=== PATIENT | male | born 1970 | race African-American/Black ===

== ENCOUNTER 2016-12-13 18:57 | Emergency (ER) | payer OTHER ==
[~2016-12-13] VITALS: Ht 193 cm; Wt 145.1 kg
[~2016-12-13 18:57] MED LIST: ALLO100T PO; ALLO300T PO; COLC25PO PO; HYDR-2758 PO; HYDR-971 PO; Hydrocodone/Acetaminophen PO; LISI-338 PO; TOPI25TA52 PO; [UNRECOGNIZED DRUG - OTHER] PO
[2016-12-13 19:01] VITALS: BP 148/91
--- NOTE | 2016-12-13 19:49 | PHYS DOC ---
Past Medical History Past Medical History: Hypertension Additional Past Medical Histor: GOUT Past Surgical History: Knee Replacement Additional Past Surgical Histo: L ROTATOR CUFF REPAIR. Alcohol Use: Occasionally Drug Use: Marijuana Adult General Chief Complaint Chief Complaint: KNEE INJURY HPI HPI Patient is a 46 year old male who presents today complaining of moderate right anterior knee pain that began today after he fell on his knee. Patient states his right knee gave out. Patient states his pain is worse on ambulation. Review of Systems Review of Systems Constitutional: Denies fever or chills [] Musculoskeletal: moderate right anterior knee pain Integument: Denies rash or skin lesions [] Neurologic: Denies headache, focal weakness or sensory changes [] Current Medications Current Medications Current Medications Medications (Trade) Dose Ordered Sig/Joshua Start Time Stop Time Status Last Admin Dose Admin Acetaminophen/ Hydrocodone Bitart (Lortab 5/325) 2 tab 1X ONCE 12/13/16 20:00 12/13/16 20:01 Naproxen (Naprosyn) 500 mg 1X ONCE 12/13/16 20:00 12/13/16 20:01 Allergies Allergies Allergies Coded Allergies Type Severity Reaction Last Updated Verified No Known Drug Allergies 09/08/14 No Physical Exam Physical Exam Constitutional: Well developed, well nourished, no acute distress, non-toxic appearance. [] Skin: Warm, dry, no erythema, no rash. [] Back: No tenderness, no CVA tenderness. [] Extremities: Right knee with no obvious deformity. Mild soft tissue swelling noted on the right knee. Tenderness on palpation of the right anterior knee. Full passive range of motion to the right knee including negative Manoj sign and negative Hannah's sign negative anterior-posterior drawer sign. +2 right pedal pulse. Cap refill less than 2 seconds the right toes. Neurologic: Alert and oriented X 3, normal motor function, normal sensory function, no focal deficits noted. [] Psychologic: Affect normal, judgement normal, mood normal. [] Current Patient Data Vital Signs Vital Signs Date Time Temp Pulse Resp B/P (MAP) Pulse Ox O2 Delivery O2 Flow Rate FiO2 12/13/16 19:01 98.3 106 22 99 Room Air 98.3 EKG EKG [] Radiology/Procedures Radiology/Procedures [] Course & Med Decision Making Course & Med Decision Making Pertinent Labs and Imaging studies reviewed. (See chart for details) Patient is in the ED with right knee pain after falling on it today. X-ray of the right knee interpreted by Dr. Kilpatrick was negative for any acute findings. Immobilizer provided the right knee, neurovascular exam intact. Ice elevation encouraged. Crutches provided. Follow-up with his own orthopedic doctor at [facility] in the next 7 days. Dragon Disclaimer Dragon Disclaimer This electronic medical record was generated, in whole or in part, using a voice recognition dictation system. Departure Departure Impression: Primary Impression: Contusion of right knee Disposition: HOME, SELF-CARE Condition: STABLE Referrals: NICOLÁS HASTINGS (PCP) DANYEL BANUELOS MD followup in one week Patient Instructions: Contusion Additional Instructions: You were seen for right knee contusion after falling on it. Wear the immobilizer provided as needed. Ice elevate the extremity. Follow-up with your own orthopedic doctor at [facility] in the next 7 days or the doctor provided. Scripts Naproxen (NAPROXEN) 375 Mg Tablet 1 TAB PO BID, #20 TAB 0 Refills Prov: WAGNER BENOIT APRN 12/13/16 Hydrocodone/Apap 5-325 (NORCO 5-325 TABLET) 1 Each Tablet 1-2 TAB PO Q4-6HRS, #20 TAB Prov: WAGNER BENOIT APRN 12/13/16 Problem Qualifiers Primary Impression: Contusion of right knee Encounter type: initial encounter Qualified Codes: S80.01XA - Contusion of right knee, initial encounter WAGNER BENOIT APRN Dec 13, 2016 19:49
[2016-12-13] MEDS ORDERED: NAPR-695 PO (19:55)
[2016-12-13] MEDS ORDERED: HYDR-971 PO (19:55)
[2016-12-13] MEDS ORDERED: NAPROXEN 500 MG TABLET PO ONE (20:00)
[2016-12-13] MEDS ORDERED: HYDROcodone/APAP 5/325MG 1 TAB TABLET PO ONE (20:00)
--- NOTE | 2016-12-14 08:47 | RAD ---
Right knee with patella, 4 views, 12/13/2016: History: Fall, pain There is moderate marginal spurring at the knee joint and at the patellofemoral articulation. There is an oblique lucency projected over the proximal tibia, probably due to an overlying soft tissue shadow. No definite fracture or dislocation is seen. A small to moderate sized knee joint effusion is evident. There is moderate subcutaneous edema about the knee. IMPRESSION: 1. Moderate degenerative change. 2. Small to moderate sized knee joint effusion. 3. No definite fracture is identified. If knee pain persists, radiographic or MR follow-up is suggested.
== END 2016-12-13 20:13 | disposition home or self-care (01) ==
LOC: ER 18:57
DX: S80.01XA Contusion of right knee, initial encounter (principal); M10.9 Gout, unspecified; I10 Essential (primary) hypertension; W18.39XA Other fall on same level, initial encounter; Y93.89 Activity, other specified; Y99.8 Other external cause status; Y92.89 Other specified places as the place of occurrence of the external cause
CPT/HCPCS: 29505; 73564; 99284-25

== ENCOUNTER 2017-04-27 09:16 | Emergency (ER) | payer OTHER ==
[2017-04-27] MEDS: HYDROcodone/APAP 5/325MG 1 TAB TABLET PO (10:28)
== END 2017-04-27 10:30 | disposition home or self-care (01) ==
LOC: ER 09:16
DX: G89.4 Chronic pain syndrome (principal); M25.561 Pain in right knee; Z76.0 Encounter for issue of repeat prescription; M10.9 Gout, unspecified; I10 Essential (primary) hypertension; F12.10 Cannabis abuse, uncomplicated
CPT/HCPCS: 99283

== ENCOUNTER 2018-05-04 06:26 | Emergency (ER) | payer OTHER ==
[~2018-05-04] VITALS: Ht 193 cm; Wt 148.3 kg
[~2018-05-04 06:26] MED LIST changes: +AMLO10TA4 PO; +ASPI-612 PO; +ATOR20TA58 PO; +CARV6.2511 PO; +COLC0.6C3 PO; -HYDR-2758 PO; +HYDR-2761 PO; +HYDR-3164 PO; -HYDR-971 PO; +LISI-130 PO; +NAPR-695 PO; +NITR0.4T SL; +OMEP20CA10 PO; +PRED20TA PO; +TICA90TA PO
--- NOTE | 2018-05-04 06:42 | PHYS DOC ---
Past Medical History Past Medical History: CAD, Hypertension Additional Past Medical Histor: GOUT Past Surgical History: Angioplasty, Knee Replacement Additional Past Surgical Histo: L ROTATOR CUFF REPAIR. Alcohol Use: Occasionally Drug Use: Marijuana Adult General Chief Complaint Chief Complaint: HAND PROBLEM HPI HPI Patient is a 47-year-old -[place] male who presents to the emergency department for evaluation of right hand swelling and pain, which she states has been present for about a week. He states the swelling and pain are sent and around his index finger and MCP joint of his index finger. He denies any discrete injury. He states he has a history of gout and has had similar flareups in the same location in the past. He denies any numbness or weakness. Palpation and movement of his left index finger and the second MCP joint worsen his pain. There are no alleviating factors to his symptoms. He reports compliance with his previously prescribed allopurinol and colchicine. Review of Systems Review of Systems Constitutional: Denies fever or chills [] Eyes: Denies change in visual acuity, redness, or eye pain [] HENT: Denies nasal congestion or sore throat [] Respiratory: Denies cough or shortness of breath [] Cardiovascular: The patient denies any shortness of breath, chest pain, palpitations, or orthopnea [] GI: Denies abdominal pain, nausea, vomiting, bloody stools or diarrhea [] : Denies dysuria or hematuria [] Musculoskeletal: Denies back pain or joint pain except as noted in the history of present illness [] Integument: Denies rash or skin lesions [] Neurologic: Denies headache, focal weakness or sensory changes [] Endocrine: Denies polyuria or polydipsia [] All other systems were reviewed and found to be within normal limits, except as documented in this note. Current Medications Current Medications Current Medications Medications (Trade) Dose Ordered Sig/Joshua Start Time Stop Time Status Last Admin Dose Admin Indomethacin (Indocin) 50 mg 1X ONCE 05/04/18 07:00 05/04/18 07:01 DC Ketorolac Tromethamine (Toradol 30mg Vial) 30 mg 1X ONCE 05/04/18 07:30 05/04/18 07:33 DC 05/04/18 07:59 30 MG Prednisone (Prednisone) 40 mg 1X ONCE 05/04/18 07:40 05/04/18 07:41 DC 05/04/18 07:59 40 MG Allergies Allergies Allergies Coded Allergies Type Severity Reaction Last Updated Verified No Known Drug Allergies 09/08/14 No Physical Exam Physical Exam PHYSICAL EXAM: CONSTITUTIONAL: Well developed, well nourished HEAD: normocephalic, atraumatic EENT: PERRL, EOMI. Conjunctivae normal color, sclerae non-icteric; moist mucous membranes. NECK: Supple, non-tender; no meningismus. LUNGS: Lungs CTA, breathing even and unlabored. Normal air movement. HEART: Regular rate and rhythm, no murmur CHEST: No deformity; non-tender ABDOMEN: The abdomen is soft, and non-tender, no masses or bruits. EXTREM: Normal ROM; no deformity, no calf tenderness. Normal pulses palpable in all extremities. There is no pedal edema. There is mild diffuse soft tissue edema of the right hand, without any erythema, and questionable minimal warmth. There is tenderness to palpation over the second MCP joint, as well as the base of the index finger. There is no tenderness to palpation to the wrist. There is normal capillary refill present. SKIN: No rash; no diaphoresis NEURO: Alert; normal speech and cognition; CN's grossly intact; strength grossly intact without focal deficit. BACK: No CVA TTP. Current Patient Data Vital Signs Vital Signs Date Time Temp Pulse Resp B/P (MAP) Pulse Ox O2 Delivery O2 Flow Rate FiO2 05/04/18 06:30 97.7 85 18 142/80 (100) 98 Room Air 97.7 Lab Values Laboratory Tests Test 05/04/18 07:15 White Blood Count 5.3 x10^3/uL (4.0-11.0) Red Blood Count 5.25 x10^6/uL (4.30-5.70) Hemoglobin 14.9 g/dL (13.0-17.5) Hematocrit 45.0 % (39.0-53.0) Mean Corpuscular Volume 86 fL (79-100) Mean Corpuscular Hemoglobin 28 pg (25-35) Mean Corpuscular Hemoglobin Concent 33 g/dL (31-37) Red Cell Distribution Width 13.0 % (11.5-14.5) Platelet Count 158 x10^3/uL (140-400) Neutrophils (%) (Auto) 63 % (31-73) Lymphocytes (%) (Auto) 22 % (24-48) L Monocytes (%) (Auto) 12 % (0-9) H Eosinophils (%) (Auto) 2 % (0-3) Basophils (%) (Auto) 2 % (0-3) Neutrophils # (Auto) 3.3 x10^3uL (1.8-7.7) Lymphocytes # (Auto) 1.1 x10^3/uL (1.0-4.8) Monocytes # (Auto) 0.6 x10^3/uL (0.0-1.1) Eosinophils # (Auto) 0.1 x10^3/uL (0.0-0.7) Basophils # (Auto) 0.1 x10^3/uL (0.0-0.2) Erythrocyte Sedimentation Rate 6 (0-15) Sodium Level 141 mmol/L (136-145) Potassium Level 3.3 mmol/L (3.5-5.1) L Chloride Level 102 mmol/L (98-107) Carbon Dioxide Level 28 mmol/L (21-32) Anion Gap 11 (6-14) Blood Urea Nitrogen 16 mg/dL (8-26) Creatinine 1.2 mg/dL (0.7-1.3) Estimated GFR (Cockcroft-Gault) 77.9 Glucose Level 131 mg/dL (70-99) H Uric Acid 8.8 mg/dL (3.5-7.2) H Calcium Level 9.0 mg/dL (8.5-10.1) C-Reactive Protein, Quantitative 30.3 mg/L (0-3.3) H Laboratory Tests 05/04/18 07:15 Laboratory Tests 05/04/18 07:15 EKG EKG [] Radiology/Procedures Radiology/Procedures [PROCEDURE: HAND RIGHT 3V Right hand, 3 views, 05/04/2018: HISTORY: Hand swelling, possible gout No fracture or dislocation is identified. There are minimal degenerative changes at scattered interphalangeal joints. No bone erosions are seen. Soft tissue swelling is evident, particularly over the dorsal aspect of the metacarpal region. IMPRESSION: No acute bony abnormality is detected. ] Course & Med Decision Making Course & Med Decision Making Pertinent Labs and Imaging studies reviewed. (See chart for details) [8:45 AM: Patient is feeling somewhat better at this time. Patient states that indomethacin has never worked for him in the past with prednisone has, so he was given a dose of prednisone in the emergency department. I discussed test results with the patient, the need for close follow-up with his PCP, and return precautions.] Artemioon Disclaimer Dragon Disclaimer This electronic medical record was generated, in whole or in part, using a voice recognition dictation system. Departure Departure Impression: Primary Impression: Gout Disposition: 01 HOME, SELF-CARE Condition: STABLE Referrals: JEANINE PINEDA II, MD Patient Instructions: Gout Scripts Acetaminophen With Codeine (TYLENOL WITH CODEINE #3 TABLET) 1 Each Tablet 1 TAB PO PRN Q6HRS PRN for PAIN, #15 TAB Prov: BRAN JORDAN MD 05/04/18 Prednisone (PREDNISONE) 20 Mg Tablet 40 MG PO DAILY for 5 Days, #10 TAB Prov: BRAN JORDAN MD 05/04/18 BRAN JORDAN MD May 04, 2018 06:42
[2018-05-04] MEDS ORDERED: INDOMETHACIN 25 MG CAPSULE. PO ONE (07:00)
[2018-05-04 07:27] LABS: BASO # 0.1 x10^3/uL (0.0-0.2); BASO % 2 % (0-3); EOS # 0.1 x10^3/uL (0.0-0.7); EOS % 2 % (0-3); HEMOGLOBIN 14.9 g/dL (13.0-17.5); LYMPH # 1.1 x10^3/uL (1.0-4.8); LYMPH % 22 % (24-48); MEAN CORPUSCULAR HEMOGLOBIN 28 pg (25-35); MEAN CORPUSCULAR HGB CONC 33 g/dL (31-37); MEAN CORPUSCULAR VOLUME 86 fL (79-100); MONO # 0.6 x10^3/uL (0.0-1.1); MONO % 12 % (0-9); NEUT # 3.3 x10^3uL (1.8-7.7); NEUT % 63 % (31-73); PLATELET COUNT 158 x10^3/uL (140-400); RED BLOOD COUNT 5.25 x10^6/uL (4.30-5.70); WHITE BLOOD COUNT 5.3 x10^3/uL (4.0-11.0)
[2018-05-04] MEDS ORDERED: KETOROLAC 30 MG/ML VIAL. IV ONE (07:30)
--- NOTE | 2018-05-04 07:39 | RAD ---
Right hand, 3 views, 05/04/2018: HISTORY: Hand swelling, possible gout No fracture or dislocation is identified. There are minimal degenerative changes at scattered interphalangeal joints. No bone erosions are seen. Soft tissue swelling is evident, particularly over the dorsal aspect of the metacarpal region. IMPRESSION: No acute bony abnormality is detected. Electronically signed by: Nelson Del Real MD (05/04/2018 7:36 AM) [facility]
[2018-05-04] MEDS ORDERED: predniSONE 20 MG TABLET PO ONE (07:40)
[2018-05-04 07:41] LABS: CREATININE 1.2 mg/dL (0.7-1.3); GFR 77.9; POTASSIUM 3.3 mmol/L (3.5-5.1)
[2018-05-04 08:11] LABS: C-REACTIVE PROTEIN 30.3 mg/L (0-3.3)
[2018-05-04 08:30] VITALS: BP 125/86
[2018-05-04] MEDS ORDERED: ACET-704 PO (08:44)
[2018-05-04] MEDS ORDERED: PRED20TA PO (08:44)
== END 2018-05-04 09:03 | disposition home or self-care (01) ==
LOC: ER 06:26
DX: M10.9 Gout, unspecified (principal); M79.89 Other specified soft tissue disorders; I10 Essential (primary) hypertension; I25.10 Atherosclerotic heart disease of native coronary artery without angina pectoris; Z98.61 Coronary angioplasty status; Z96.659 Presence of unspecified artificial knee joint
CPT/HCPCS: 36415; 73130; 80048; 84550; 85025; 85651; 86140; 96374; 99284; J1885; J7512

== ENCOUNTER 2018-08-24 23:56 | Observation (INO) | payer OTHER ==
[~2018-08-24] VITALS: Ht 193 cm; Wt 147.4 kg
[~2018-08-24 23:56] MED LIST changes: +ACET-704 PO; +PRED50TA PO
[2018-08-25 00:21] LABS: BASO % 1 % (0-3); EOS # 0.1 x10^3/uL (0.0-0.7); EOS % 2 % (0-3); HEMATOCRIT 43.4 % (39.0-53.0); HEMOGLOBIN 14.7 g/dL (13.0-17.5); LYMPH # 1.8 x10^3/uL (1.0-4.8); LYMPH % 27 % (24-48); MEAN CORPUSCULAR HEMOGLOBIN 29 pg (25-35); MEAN CORPUSCULAR HGB CONC 34 g/dL (31-37); MEAN CORPUSCULAR VOLUME 85 fL (79-100); MONO # 0.8 x10^3/uL (0.0-1.1); MONO % 12 % (0-9); NEUT # 3.8 x10^3uL (1.8-7.7); NEUT % 58 % (31-73); PLATELET COUNT 220 x10^3/uL (140-400); RED BLOOD COUNT 5.12 x10^6/uL (4.30-5.70); RED CELL DISTRIBUTION WIDTH 13.1 % (11.5-14.5); WHITE BLOOD COUNT 6.6 x10^3/uL (4.0-11.0)
[2018-08-25 00:30] LABS: PROTHROMBIN TIME PATIENT 13.9 SEC (11.7-14.0)
[2018-08-25] MEDS ORDERED: ASPIRIN CHEWABLE 81 MG TABLET. PO ONE (00:30)
[2018-08-25 00:31] LABS: CALCIUM 9.7 mg/dL (8.5-10.1); CREATININE 1.4 mg/dL (0.7-1.3); GFR 65.2; POTASSIUM 3.8 mmol/L (3.5-5.1)
[2018-08-25 00:36] LABS: ALBUMIN 4.4 g/dL (3.4-5.0); TOTAL BILIRUBIN 1.1 mg/dL (0.2-1.0); TOTAL PROTEIN 8.6 g/dL (6.4-8.2)
[2018-08-25] MEDS ORDERED: NITROGLYCERIN SUBLINGUAL 0.4 MG BOTTLE OF 25. SL PRN ×2 (00:45→09:00)
[2018-08-25] MEDS ORDERED: MORPHINE SULFATE 2 MG/ML VIAL. IV PRN (00:45)
[2018-08-25] MEDS ORDERED: fentaNYL PF VIAL 100 MCG/2 ML VIAL IV ONE (01:00)
--- NOTE | 2018-08-25 01:28 | RAD ---
CLINICAL HISTORY: Right lower extremity swelling COMPARISON: None available. TECHNIQUE: Ultrasound evaluation of the right lower extremity was performed from the groin to the upper calf with gomez scale, spectral and color doppler evaluation. FINDINGS: The right common femoral vein, and femoral vein, including the saphenous-femoral junction are normal in appearance. Color and spectral Doppler evaluation demonstrates normal spontaneous flow, augmentation and phasicity. The right popliteal vein and visualized calf veins also demonstrate normal compressibility and flow. IMPRESSION: No evidence for right lower extremity DVT Electronically signed by: Pavan Evans MD (08/25/2018 1:26 AM) [place] [id number]
[2018-08-25] MEDS ORDERED: CONTRAST GIVEN. MC PRN (01:30)
--- NOTE | 2018-08-25 01:36 | PHYS DOC ---
Past Medical History Past Medical History: Hypertension Additional Past Medical Histor: GOUT Past Surgical History: Other Additional Past Surgical Histo: 2 HEART STENTS Alcohol Use: Occasionally Drug Use: None Adult General Chief Complaint Chief Complaint: CHEST PAIN [facility] HPI Patient is a 47 year old male with history of known coronary artery disease with 2 stents who is presenting with chest pain since noon left sided feels sharp and dull as well radiated to the left neck and down towards the back of the left arm he says it hurts to touch it hurts to twist he really cannot stand straight up without it hurting. He just throughout the plan he was in [place] recently he said he has some increased right leg swelling as well he was worried about that no shortness of breath. This feels different from his prior cardiac pain but he wanted to come in to be checked be evaluated. Review of Systems Review of Systems Constitutional: Denies fever or chills [] Eyes: Denies change in visual acuity, redness, or eye pain [] HENT: Denies nasal congestion or sore throat [] Respiratory: Cardiovascular: No additional information not addressed in HPI [] GI: Denies abdominal pain, nausea, vomiting, bloody stools or diarrhea [] : Denies dysuria or hematuria [] Musculoskeletal: Neurologic: Denies headache, focal weakness or sensory changes [] Endocrine: Denies polyuria or polydipsia [] All other systems were reviewed and found to be within normal limits, except as documented in this note. Current Medications Current Medications Current Medications Medications (Trade) Dose Ordered Sig/Joshua Start Time Stop Time Status Last Admin Dose Admin Aspirin (Children'S Aspirin) 324 mg 1X ONCE 08/25/18 00:30 08/25/18 00:31 DC 08/25/18 00:19 324 MG Fentanyl Citrate (Fentanyl 2ml Vial) 50 mcg 1X ONCE 08/25/18 01:00 08/25/18 01:01 DC 08/25/18 01:11 50 MCG Morphine Sulfate (Morphine Sulfate) 2 mg PRN Q2HR PRN 08/25/18 00:45 08/26/18 00:44 Nitroglycerin (Nitrostat) 0.4 mg PRN Q5MIN PRN 08/25/18 00:45 08/26/18 00:44 Allergies Allergies Allergies Coded Allergies Type Severity Reaction Last Updated Verified No Known Drug Allergies 09/08/14 No Physical Exam Physical Exam Constitutional: Well developed, well nourished, no acute distress, non-toxic appearance. [] HENT: Normocephalic, atraumatic, bilateral external ears normal, oropharynx moist, no oral exudates, nose normal. [] Eyes: PERRLA, EOMI, conjunctiva normal, no discharge. [] Neck: Normal range of motion, no tenderness, supple, no stridor. [] Cardiovascular:Heart rate regular rhythm, no murmur [] Lungs & Thorax: Bilateral breath sounds clear to auscultation []there is chest wall tenderness noted reproduces the pain on the left Abdomen: Bowel sounds normal, soft, no tenderness, no masses, no pulsatile masses. [] Skin: Warm, dry, no erythema, no rash. [] Back: No tenderness, no CVA tenderness. [] Extremities: No tenderness, no cyanosis, no clubbing, ROM intact, mild asymmetric edema of the right lower extremity Neurologic: Alert and oriented X 3, normal motor function, normal sensory function, no focal deficits noted. [] Psychologic: Affect normal, judgement normal, mood normal. [] Current Patient Data Vital Signs Vital Signs Date Time Temp Pulse Resp B/P (MAP) Pulse Ox O2 Delivery O2 Flow Rate FiO2 08/25/18 01:11 23 98 Room Air 08/25/18 00:19 98.1 95 139/79 (99) 98.1 Lab Values Laboratory Tests Test 08/25/18 00:10 White Blood Count 6.6 x10^3/uL (4.0-11.0) Red Blood Count 5.12 x10^6/uL (4.30-5.70) Hemoglobin 14.7 g/dL (13.0-17.5) Hematocrit 43.4 % (39.0-53.0) Mean Corpuscular Volume 85 fL (79-100) Mean Corpuscular Hemoglobin 29 pg (25-35) Mean Corpuscular Hemoglobin Concent 34 g/dL (31-37) Red Cell Distribution Width 13.1 % (11.5-14.5) Platelet Count 220 x10^3/uL (140-400) Neutrophils (%) (Auto) 58 % (31-73) Lymphocytes (%) (Auto) 27 % (24-48) Monocytes (%) (Auto) 12 % (0-9) H Eosinophils (%) (Auto) 2 % (0-3) Basophils (%) (Auto) 1 % (0-3) Neutrophils # (Auto) 3.8 x10^3uL (1.8-7.7) Lymphocytes # (Auto) 1.8 x10^3/uL (1.0-4.8) Monocytes # (Auto) 0.8 x10^3/uL (0.0-1.1) Eosinophils # (Auto) 0.1 x10^3/uL (0.0-0.7) Basophils # (Auto) 0.0 x10^3/uL (0.0-0.2) Prothrombin Time 13.9 SEC (11.7-14.0) Prothrombin Time INR 1.1 (0.8-1.1) D-Dimer (Yohana) 0.69 ug/mlFEU (0.00-0.50) H Sodium Level 143 mmol/L (136-145) Potassium Level 3.8 mmol/L (3.5-5.1) Chloride Level 106 mmol/L (98-107) Carbon Dioxide Level 24 mmol/L (21-32) Anion Gap 13 (6-14) Blood Urea Nitrogen 14 mg/dL (8-26) Creatinine 1.4 mg/dL (0.7-1.3) H Estimated GFR (Cockcroft-Gault) 65.2 BUN/Creatinine Ratio 10 (6-20) Glucose Level 123 mg/dL (70-99) H Calcium Level 9.7 mg/dL (8.5-10.1) Total Bilirubin 1.1 mg/dL (0.2-1.0) H Aspartate Amino Transferase (AST) 38 U/L (15-37) H Alanine Aminotransferase (ALT) 65 U/L (16-63) H Alkaline Phosphatase 157 U/L (46-116) H Troponin I Quantitative < 0.017 ng/mL (0.000-0.055) QJ-Hyg-B-Type Natriuretic Peptide 8 pg/mL (0-124) Total Protein 8.6 g/dL (6.4-8.2) H Albumin 4.4 g/dL (3.4-5.0) Albumin/Globulin Ratio 1.0 (1.0-1.7) Laboratory Tests 08/25/18 00:10 Laboratory Tests 08/25/18 00:10 EKG EKG []EKG normal sinus rhythm rate of 95 there are some nonspecific ST changes laterally overall this is somewhat similar compared to March 24, 2018 no STEMI there are also Q waves noted inferiorly which were seen before as well. Radiology/Procedures Radiology/Procedures [] Impressions: Mitral patient chest x-ray very poor inspiration but no definite pneumonia was identified no pneumothorax was seen Course & Med Decision Making Course & Med Decision Making Pertinent Labs and Imaging studies reviewed. (See chart for details) []47-year-old male with a known coronary artery disease history presenting with chest pain there are some atypical features EKG and troponin are unrevealing d- dimer was borderline elevated this was checked due to previous recent history of airplane travel. Ultrasound pulmonary read was negative for DVT. At this point time a CT angiogram is pending. [facility] and serial troponins and observation given the known CAD history Dragon Disclaimer Dragon Disclaimer This electronic medical record was generated, in whole or in part, using a voice recognition dictation system. Departure Departure Impression: Primary Impression: CAD (coronary artery disease) Additional Impression: Chest pain Disposition: ADMITTED INPATIENT [facility] Condition: STABLE Referrals: NO PCP (PCP) Problem Qualifiers DAMARI REESE MD Aug 25, 2018 01:36
[2018-08-25] MEDS ORDERED: IOHEXOL 350 MG/ML 100 ML VIAL. IV ONE (02:00)
[2018-08-25 02:57] VITALS: BP 120/75
[2018-08-25] MEDS ORDERED: ATOR40TA59 PO (03:32)
--- NOTE | 2018-08-25 03:48 | RAD ---
EXAM: CT chest with contrast - pulmonary embolus protocol CLINICAL HISTORY: Left pleuritic chest pain. COMPARISON: None. TECHNIQUE: CT of the chest following the administration of intravenous contrast during the pulmonary arterial phase. Axial, coronal and sagittal reformatted images were generated including MIP images. ---PQRS compliance statement - One or more of the following individualized dose reduction techniques were utilized for this study: 1. Automated exposure control 2. Adjustment of the mA and/or kV according to patient size 3. Use of iterative reconstruction technique--- FINDINGS: CHEST: Diagnostic quality: Suboptimal. Pulmonary emboli: No pulmonary emboli to the level of the lobar branches. More peripheral vessels are not well assessed. Right heart strain: None Pulmonary arteries: Normal in caliber. Heart is not enlarged. No pericardial effusion. Coronary artery calcifications are seen. No mediastinal or hilar lymphadenopathy. No axillary lymphadenopathy. Prominent opacities in the lower lobes likely atelectasis. No lobar consolidation. No suspicious lung nodule or mass is seen. Visualized Upper abdomen: Calcified gallstones are seen dependently within the gallbladder. Bones: Aeration of the bony structures limited given MIP reconstructions. Degenerative changes of the spine are seen. IMPRESSION: Suboptimal contrast bolus timing. No pulmonary emboli to the level of the lobar branches. More peripheral vessels are not well assessed. Electronically signed by: Pavan Evans MD (08/25/2018 3:46 AM) [place] [id number]
--- NOTE | 2018-08-25 04:24 | RAD ---
EXAM: AP View of the chest DATE: 08/25/2018 12:26 AM INDICATION: Chest pain COMPARISON: No Prior FINDINGS/ IMPRESSION: Exam is limited given low lung volumes. The heart is not enlarged. Aorta is mildly tortuous. Mediastinal and hilar contours are stable. Given the suboptimal radiographic penetration and low lung volumes, no lobar consolidation. No pleural effusion or pneumothorax. Electronically signed by: Pavan Evans MD (08/25/2018 4:21 AM) [facility]
--- NOTE | 2018-08-25 07:42 | EKG ---
[facility] [address] [place] [id number] Test Date: 2018-08-25 Test Time: 00:04:40 Pat Name: PIPPA BRIDGES Department: Room: Gender: M Water [employer]er: : 1970 Requested By: DAMARI REESE Order Number: [id number] Reading MD: Measurements Intervals [place] Rate: 95 P: 18 [place]: 142 QRS: 16 QRSD: 92 T: 25 QT: 346 QTc: 437 Interpretive Statements SINUS RHYTHM QRS(T) CONTOUR ABNORMALITY CONSIDER INFERIOR MYOCARDIAL DAMAGE POSSIBLY ABNORMAL ECG No previous ECG available for comparison
[2018-08-25 07:44] VITALS: BP 156/86
[2018-08-25] MEDS ORDERED: HYDROcodone/APAP 5/325MG 1 TAB TABLET PO PRN (09:00)
[2018-08-25] MEDS ORDERED: TICAGRELOR 90 MG TABLET. PO SCH (09:00)
[2018-08-25] MEDS ORDERED: ALLOPURINOL 300 MG TABLET. PO SCH (09:00)
[2018-08-25] MEDS ORDERED: ACETAMINOPHEN/CODEINE 300/30MG TABLET. PO PRN (09:00)
[2018-08-25] MEDS ORDERED: CARVEDILOL 6.25 MG TABLET. PO SCH (09:00)
[2018-08-25] MEDS ORDERED: amLODIPine BESYLATE 10 MG TABLET PO SCH (09:00)
[2018-08-25] MEDS ORDERED: ASPIRIN ENTERIC COATED 81 MG TABLET.DR. PO SCH (09:00)
[2018-08-25] MEDS ORDERED: PANTOPRAZOLE 40 MG TABLET.DR. PO SCH (09:00)
--- NOTE | 2018-08-25 09:56 | PDOC2 ---
CARDIAC CONSULT DATE OF CONSULT Date of Consult DATE: 08/25/18 TIME: 09:56 REASON FOR CONSULT Reason for Consult: Chest pain REFERRING PHYSICIAN Referring Physician: Placido SOURCE Source: Chart review, Patient HISTORY OF PRESENT ILLNESS HISTORY OF PRESENT ILLNESS This is a pleasant 47 yo male admitted for complaincs of chest pain. This started yesterday noon and just started having left chest pain that is sharp with left choulder tenderness easily reproducible with palpation and neck/left shoulder ROM and hurts also with cough. No sustained coughing, wheezing, SOA. No fever or chills. No recent heavy lifting, falls or any recent injury. No palpitations or dizziness. No n/v nor any COURTNEY/SOA. He has been walking 2.6 miles daily as his exercise with good tolerance per his description. He has been losing wt as well, complaint with his meds including DAPT and his BP has been controlled. He also has seen his associate director of nursing in recently. No heartburn, no ETOH. No tobacco but sometimes use marijuana. PAST MEDICAL HISTORY Past Medical History Cardiovascular: HTN, Hyperlipidemia, CAD Pulmonary: No pertinent hx CENTRAL NERVOUS SYSTEM: Other (No pertinent history) GI: GERD Heme/Onc: No pertinent hx Hepatobiliary: No pertinent hx Psych: No pertinent hx Musculoskeletal: Osteoarthritis Rheumatologic: Gout Infectious disease: No pertinent hx ENT: No pertinent hx Renal/: No pertinent hx Endocrine: No pertinent hx Dermatology: No pertinent hx PAST SURGICAL HISTORY Past Surgical History PCI/BHARATH to RCA and LAD Arthroscopy, Total knee replacement (left) FAMILY HISTORY Family History: Heart Disease SOCIAL HISTORY Smoke: No ALCOHOL: occassional Drugs: Marijuana Lives: with Family (mother) CURRENT MEDICATIONS CURRENT MEDICATIONS Current Medications Medications (Trade) Dose Ordered Sig/Joshua Route PRN Reason Start Time Stop Time Status Last Admin Dose Admin Aspirin (Children'S Aspirin) 324 mg 1X ONCE PO 08/25/18 00:30 08/25/18 00:31 DC 08/25/18 00:19 Fentanyl Citrate (Fentanyl 2ml Vial) 50 mcg 1X ONCE IV 08/25/18 01:00 08/25/18 01:01 DC 08/25/18 01:11 Morphine Sulfate (Morphine Sulfate) 2 mg PRN Q2HR PRN IV SEVERE PAIN 08/25/18 00:45 08/26/18 00:44 08/25/18 08:30 Iohexol (Omnipaque 350 Mg/ml) 100 ml 1X ONCE IV 08/25/18 02:00 08/25/18 02:01 DC 08/25/18 02:50 ALLERGIES ALLERGIES: Coded Allergies: No Known Drug Allergies (Unverified , 09/08/14) ROS Review of System 14 point ROS evaluated with pertinent positives noted per HPI PHYSICAL EXAM General: Alert, Oriented X3, Cooperative, No acute distress HEENT: Atraumatic, Mucous membr. moist/pink Lungs: Clear to auscultation, Normal air movement Heart: Regular rate (SR), Normal S1, Normal S2, No murmurs Abdomen: Soft, No tenderness Extremities: No cyanosis, No edema Skin: No breakdown, No significant lesion Neuro: Normal speech, Sensation intact Psych/Mental Status: Mental status NL, Mood NL MUSCULOSKELETAL: Other (left chest pain with left shoulder ROM and also with palpation. limited ROM to left shoulder and neck due to pain with mobiliy. ) VITALS VITALS Vital Signs Date Time Temp Pulse Resp B/P (MAP) Pulse Ox O2 Delivery O2 Flow Rate FiO2 08/25/18 08:30 96 Room Air 08/25/18 07:44 98.6 85 20 156/86 (109) 98.6 LABS Lab: Laboratory Tests Test 08/25/18 00:10 08/25/18 06:30 08/25/18 08:25 White Blood Count 6.6 x10^3/uL (4.0-11.0) Red Blood Count 5.12 x10^6/uL (4.30-5.70) Hemoglobin 14.7 g/dL (13.0-17.5) Hematocrit 43.4 % (39.0-53.0) Mean Corpuscular Volume 85 fL (79-100) Mean Corpuscular Hemoglobin 29 pg (25-35) Mean Corpuscular Hemoglobin Concent 34 g/dL (31-37) Red Cell Distribution Width 13.1 % (11.5-14.5) Platelet Count 220 x10^3/uL (140-400) Neutrophils (%) (Auto) 58 % (31-73) Lymphocytes (%) (Auto) 27 % (24-48) Monocytes (%) (Auto) 12 % (0-9) Eosinophils (%) (Auto) 2 % (0-3) Basophils (%) (Auto) 1 % (0-3) Neutrophils # (Auto) 3.8 x10^3uL (1.8-7.7) Lymphocytes # (Auto) 1.8 x10^3/uL (1.0-4.8) Monocytes # (Auto) 0.8 x10^3/uL (0.0-1.1) Eosinophils # (Auto) 0.1 x10^3/uL (0.0-0.7) Basophils # (Auto) 0.0 x10^3/uL (0.0-0.2) Prothrombin Time 13.9 SEC (11.7-14.0) Prothromb Time International Ratio 1.1 (0.8-1.1) D-Dimer (Yohana) 0.69 ug/mlFEU (0.00-0.50) Sodium Level 143 mmol/L (136-145) Potassium Level 3.8 mmol/L (3.5-5.1) Chloride Level 106 mmol/L (98-107) Carbon Dioxide Level 24 mmol/L (21-32) Anion Gap 13 (6-14) Blood Urea Nitrogen 14 mg/dL (8-26) Creatinine 1.4 mg/dL (0.7-1.3) Estimated GFR (Cockcroft-Gault) 65.2 BUN/Creatinine Ratio 10 (6-20) Glucose Level 123 mg/dL (70-99) Calcium Level 9.7 mg/dL (8.5-10.1) Total Bilirubin 1.1 mg/dL (0.2-1.0) Aspartate Amino Transf (AST/SGOT) 38 U/L (15-37) Alanine Aminotransferase (ALT/SGPT) 65 U/L (16-63) Alkaline Phosphatase 157 U/L (46-116) Troponin I Quantitative < 0.017 ng/mL (0.000-0.055) < 0.017 ng/mL (0.000-0.055) < 0.017 ng/mL (0.000-0.055) BL-Pie-X-Type Natriuretic Peptide 8 pg/mL (0-124) Total Protein 8.6 g/dL (6.4-8.2) Albumin 4.4 g/dL (3.4-5.0) Albumin/Globulin Ratio 1.0 (1.0-1.7) ECHOCARDIOGRAM ECHOCARDIOGRAM <Conclusion> The left ventricular systolic function is normal and the ejection fraction is within normal range. The Ejection Fraction is 60-65%. There is normal LV segmental wall motion. There is borderline to mild concentric left ventricular hypertrophy. DATE: 03/24/18 1047 HEART CATH HEART CATH Findings. Hemodynamics. LV pressure 140/17, aortic root pressure 138/80. Coronaries. Left main. The left main was a normal-size vessel with no lesions. Left anterior descending. The LAD was a large vessel with normal distribution. It had a proximal 20% lesion and mid greater than 80% lesion. Left circumflex. The left circumflex is a nondominant vessel. It had a diffuse mid 45% lesion. Right coronary artery. The right coronary artery was a large dominant vessel. It had a mid greater than 85% lesion at the angle of the vessel. It also had a distal 25% lesion. 3.5 extra-support left eye system lesion engage the left coronary system. <Conclusion> Severe two-vessel coronary artery disease. Drug-eluting stent to the LAD decreasing and mid lesion from 80% to 0. Drug-eluting stent to the right coronary artery decreasing a greater than 85% lesion to 0. Moderate disease in the left circumflex system. Intact LV systolic function with an ejection fraction of greater than 55%. DATE: 03/24/18 1336 ASSESSMENT/PLAN ASSESSMENT/PLAN 1. Atypical CP: Suspect MSK, noncardiac 2. Possible impingement syndrome vs muscles strain/torticollis: limited neck and left shoulder ROM 3. HTN: controlled 4. HLP 5. CAD: recent PCI/BHARATH to RCA and LAD 6. Morbid obesity 7. Asymptomatic cholelithiasis Recommendation 1. Analgesic (consider topical with current use of DAPT), muscle relaxants per PCP. Discussed with staff. heat therapy 2. Continue DAPT and secondary prevention measures 3. Follow up with [facility]. 4. Lifestyle modification CLIFF LOW APRN Aug 25, 2018 09:56
[2018-08-25 10:40] VITALS: BP 137/85
--- NOTE | 2018-08-25 10:45 | NUR ---
SS following for discharge planning. SS reviewed pt chart. Pt is from home with spouse and is currently on room air. No discharge needs noted at this time. SS will continue to follow for discharge planning.
[2018-08-25] MEDS ORDERED: HYDR-3164 PO (11:35)
--- NOTE | 2018-08-25 11:40 | PDOC1 ---
History and Physical Date of Admission Date of Admission DATE: 08/25/18 TIME: 11:35 Identification/Chief Complaint Chief Complaint cp Source Source: Caregiver, Chart review, Patient History of Present Illness History of Present Illness 47-year-old -[place] male, history of 2 stents done in March, no PCP but claims compliance to OAC including Brilinta etc. comes in because of chest pain. HE describes as left sided, reproducible on palp, CE and EKG reasuring. FOr echo today, If ok, home today to cont brilinta and other meds, CP no identifiable precip or alleviating, no diaphoresis, soa or presyncopal sxs. HE seems to have good exercise tolerance, non smoker, non drinker but admits to occasional marijuana Past Medical History Cardiovascular: CAD, HTN, Hyperlipidemia Pulmonary: No pertinent hx CENTRAL NERVOUS SYSTEM: Other GI: GERD Heme/Onc: No pertinent hx Hepatobiliary: No pertinent hx Psych: No pertinent hx Musculoskeletal: Osteoarthritis Rheumatologic: Gout Infectious disease: No pertinent hx Renal/: No pertinent hx Endocrine: No pertinent hx Past Surgical History Past Surgical History: Arthroscopy, Total knee replacement Family History Family History: Heart Disease Social History Smoke: No ALCOHOL: occassional Drugs: Marijuana Current Medications Current Medications Current Medications Aspirin (Children'S Aspirin) 324 mg 1X ONCE PO Last administered on 08/25/18at 00:19; Start 08/25/18 at 00:30; Stop 08/25/18 at 00:31; Status DC Fentanyl Citrate (Fentanyl 2ml Vial) 50 mcg 1X ONCE IV Last administered on 08/25/18at 01:11; Start 08/25/18 at 01:00; Stop 08/25/18 at 01:01; Status DC Morphine Sulfate (Morphine Sulfate) 2 mg PRN Q2HR PRN IV SEVERE PAIN Last administered on 08/25/18at 08:30; Start 08/25/18 at 00:45; Stop 08/26/18 at 00:44 Nitroglycerin (Nitrostat) 0.4 mg PRN Q5MIN PRN SL CHEST PAIN; Start 08/25/18 at 00:45; Stop 08/26/18 at 00:44 Iohexol (Omnipaque 350 Mg/ml) 100 ml 1X ONCE IV Last administered on 08/25/18at 02:50; Start 08/25/18 at 02:00; Stop 08/25/18 at 02:01; Status DC Info (CONTRAST GIVEN -- Rx MONITORING) 1 each PRN DAILY PRN MC SEE COMMENTS; Start 08/25/18 at 01:30; Stop 08/27/18 at 01:29 Acetaminophen/ Codeine Phosphate (Tylenol #3) 1 tab PRN Q6HRS PRN PO MODERATE PAIN; Start 08/25/18 at 09:00 Allopurinol (Zyloprim) 300 mg DAILY PO Last administered on 08/25/18at 09:54; Start 08/25/18 at 09:00 Amlodipine Besylate (Norvasc) 10 mg DAILY PO Last administered on 08/25/18at 09:54; Start 08/25/18 at 09:00 Aspirin (Ecotrin) 81 mg DAILYWBKFT PO Last administered on 08/25/18at 09:54; Start 08/25/18 at 09:00 Atorvastatin Calcium (Lipitor) 40 mg HS PO ; Start 08/25/18 at 21:00 Carvedilol (Coreg) 6.25 mg BIDWMEALS PO Last administered on 08/25/18at 09:54; Start 08/25/18 at 09:00 Acetaminophen/ Hydrocodone Bitart (Lortab 5/325) 1 tab PRN Q6HRS PRN PO SEVERE PAIN; Start 08/25/18 at 09:00 Nitroglycerin (Nitrostat) 0.4 mg PRN Q5MIN PRN SL CHEST PAIN; Start 08/25/18 at 09:00 Ticagrelor (Brilinta) 90 mg BID PO Last administered on 08/25/18at 10:16; Start 08/25/18 at 09:00 Pantoprazole Sodium (Protonix) 40 mg DAILYAC PO Last administered on 08/25/18at 09:53; Start 08/25/18 at 09:00 Active Scripts Active [place] 5-325 Tablet (Acetaminophen/Hydrocodone Bitart) 1 Each Tablet 1 Tab PO PRN Q6HRS PRN No driving or drinking alcohol while taking this medication Prednisone 50 Mg Tablet 1 Tab PO DAILY Start 08/07/18 Tylenol With Codeine #3 Tablet (Acetaminophen/Codeine Phosphate) 1 Each Tablet 1 Tab PO PRN Q6HRS PRN Aspirin Ec (Aspirin) 81 Mg Tablet. 81 Mg PO DAILYWBKFT MDD 1 Carvedilol (Carvedilol) 6.25 Mg Tablet 6.25 Mg PO BIDWMEALS MDD 1 Nitrostat (Nitroglycerin) 0.4 Mg Tab.subl 0.4 Mg SL PRN Q5MIN PRN MDD 1 Brilinta (Ticagrelor) 90 Mg Tablet 90 Mg PO BID MDD 1 Reported Atorvastatin Calcium 40 Mg Tablet 40 Mg PO HS Omeprazole 20 Mg Capsule.dr 1 Cap PO DAILY Norvasc (Amlodipine Besylate) 10 Mg Tablet 10 Mg PO DAILY Colchicine 0.6 Mg Capsule 0.6 Mg PO DAILY Allopurinol 300 Mg Tablet 1 Tab PO DAILY Allergies Allergies: Coded Allergies: No Known Drug Allergies (Unverified , 09/08/14) ROS Review of System as per hPI, rest 14 pt neg Physical Exam General: Alert, Oriented X3, Cooperative, No acute distress HEENT: Atraumatic, PERRLA, EOMI Lungs: Clear to auscultation, Normal air movement Heart: S1S2, RRR, no thrills, no rubs, no gallops, no murmurs Cardiovascular: S1, S2 Abdomen: Normal bowel sounds, Soft, No tenderness, No hepatosplenomegaly, No masses Male Genitals Exam: normal genitalia, normal prostate PELVIC: Nml ext genitalia Extremities: No clubbing, No cyanosis, No edema, Normal pulses, No tenderness/swelling Skin: No rashes, No breakdown, No significant lesion Neuro: Normal gait, Normal speech, Strength at 5/5 X4 ext, Normal tone, Sensation intact, Cranial nerves 3-12 NL, Reflexes 2+ Psych/Mental Status: Mental status NL, Mood NL Vitals Vitals Vital Signs Date Time Temp Pulse Resp B/P (MAP) Pulse Ox O2 Delivery O2 Flow Rate FiO2 08/25/18 10:40 97.6 84 20 137/85 (102) 96 Room Air 97.6 Labs Labs Laboratory Tests Test 08/25/18 00:10 08/25/18 06:30 08/25/18 08:25 White Blood Count 6.6 x10^3/uL (4.0-11.0) Red Blood Count 5.12 x10^6/uL (4.30-5.70) Hemoglobin 14.7 g/dL (13.0-17.5) Hematocrit 43.4 % (39.0-53.0) Mean Corpuscular Volume 85 fL (79-100) Mean Corpuscular Hemoglobin 29 pg (25-35) Mean Corpuscular Hemoglobin Concent 34 g/dL (31-37) Red Cell Distribution Width 13.1 % (11.5-14.5) Platelet Count 220 x10^3/uL (140-400) Neutrophils (%) (Auto) 58 % (31-73) Lymphocytes (%) (Auto) 27 % (24-48) Monocytes (%) (Auto) 12 % (0-9) Eosinophils (%) (Auto) 2 % (0-3) Basophils (%) (Auto) 1 % (0-3) Neutrophils # (Auto) 3.8 x10^3uL (1.8-7.7) Lymphocytes # (Auto) 1.8 x10^3/uL (1.0-4.8) Monocytes # (Auto) 0.8 x10^3/uL (0.0-1.1) Eosinophils # (Auto) 0.1 x10^3/uL (0.0-0.7) Basophils # (Auto) 0.0 x10^3/uL (0.0-0.2) Prothrombin Time 13.9 SEC (11.7-14.0) Prothromb Time International Ratio 1.1 (0.8-1.1) D-Dimer (Yohana) 0.69 ug/mlFEU (0.00-0.50) Sodium Level 143 mmol/L (136-145) Potassium Level 3.8 mmol/L (3.5-5.1) Chloride Level 106 mmol/L (98-107) Carbon Dioxide Level 24 mmol/L (21-32) Anion Gap 13 (6-14) Blood Urea Nitrogen 14 mg/dL (8-26) Creatinine 1.4 mg/dL (0.7-1.3) Estimated GFR (Cockcroft-Gault) 65.2 BUN/Creatinine Ratio 10 (6-20) Glucose Level 123 mg/dL (70-99) Calcium Level 9.7 mg/dL (8.5-10.1) Total Bilirubin 1.1 mg/dL (0.2-1.0) Aspartate Amino Transf (AST/SGOT) 38 U/L (15-37) Alanine Aminotransferase (ALT/SGPT) 65 U/L (16-63) Alkaline Phosphatase 157 U/L (46-116) Troponin I Quantitative < 0.017 ng/mL (0.000-0.055) < 0.017 ng/mL (0.000-0.055) < 0.017 ng/mL (0.000-0.055) ER-Uxt-U-Type Natriuretic Peptide 8 pg/mL (0-124) Total Protein 8.6 g/dL (6.4-8.2) Albumin 4.4 g/dL (3.4-5.0) Albumin/Globulin Ratio 1.0 (1.0-1.7) Laboratory Tests Test 08/25/18 00:10 08/25/18 06:30 08/25/18 08:25 White Blood Count 6.6 x10^3/uL (4.0-11.0) Red Blood Count 5.12 x10^6/uL (4.30-5.70) Hemoglobin 14.7 g/dL (13.0-17.5) Hematocrit 43.4 % (39.0-53.0) Mean Corpuscular Volume 85 fL (79-100) Mean Corpuscular Hemoglobin 29 pg (25-35) Mean Corpuscular Hemoglobin Concent 34 g/dL (31-37) Red Cell Distribution Width 13.1 % (11.5-14.5) Platelet Count 220 x10^3/uL (140-400) Neutrophils (%) (Auto) 58 % (31-73) Lymphocytes (%) (Auto) 27 % (24-48) Monocytes (%) (Auto) 12 % (0-9) Eosinophils (%) (Auto) 2 % (0-3) Basophils (%) (Auto) 1 % (0-3) Neutrophils # (Auto) 3.8 x10^3uL (1.8-7.7) Lymphocytes # (Auto) 1.8 x10^3/uL (1.0-4.8) Monocytes # (Auto) 0.8 x10^3/uL (0.0-1.1) Eosinophils # (Auto) 0.1 x10^3/uL (0.0-0.7) Basophils # (Auto) 0.0 x10^3/uL (0.0-0.2) Prothrombin Time 13.9 SEC (11.7-14.0) Prothromb Time International Ratio 1.1 (0.8-1.1) D-Dimer (Yohana) 0.69 ug/mlFEU (0.00-0.50) Sodium Level 143 mmol/L (136-145) Potassium Level 3.8 mmol/L (3.5-5.1) Chloride Level 106 mmol/L (98-107) Carbon Dioxide Level 24 mmol/L (21-32) Anion Gap 13 (6-14) Blood Urea Nitrogen 14 mg/dL (8-26) Creatinine 1.4 mg/dL (0.7-1.3) Estimated GFR (Cockcroft-Gault) 65.2 BUN/Creatinine Ratio 10 (6-20) Glucose Level 123 mg/dL (70-99) Calcium Level 9.7 mg/dL (8.5-10.1) Total Bilirubin 1.1 mg/dL (0.2-1.0) Aspartate Amino Transf (AST/SGOT) 38 U/L (15-37) Alanine Aminotransferase (ALT/SGPT) 65 U/L (16-63) Alkaline Phosphatase 157 U/L (46-116) Troponin I Quantitative < 0.017 ng/mL (0.000-0.055) < 0.017 ng/mL (0.000-0.055) < 0.017 ng/mL (0.000-0.055) MU-Szx-X-Type Natriuretic Peptide 8 pg/mL (0-124) Total Protein 8.6 g/dL (6.4-8.2) Albumin 4.4 g/dL (3.4-5.0) Albumin/Globulin Ratio 1.0 (1.0-1.7) VTE Prophylaxis Ordered VTE Prophylaxis Devices: Yes VTE Pharmacological Prophylaxi: Yes Assessment/Plan Assessment/Plan 1. Atypical CP: Suspect MSK, noncardiac; COSTOCHONDRITIS 2. Possible impingement syndrome vs muscles strain/torticollis: limited neck and left shoulder ROM 3. HTN: controlled 4. HLP 5. CAD: recent PCI/BHARATH to RCA and LAD 6. Morbid obesity 7. Asymptomatic cholelithiasis PLAN; Home today if echo normal,cont brilinta etc JOY FLOWERS MD Aug 25, 2018 11:40
--- NOTE | 2018-08-25 11:41 | PDOC3 ---
Discharge Summary Visit Information Date of Admission: Aug 24, 2018 Date of Discharge: Aug 25, 2018 Admitting Diagnosis Comment: costochondritis Hx CAD with indwelling stents and Brilinta Obesity, BMI 40 Brief Hospital Course Allergies Allergies Coded Allergies Type Severity Reaction Last Updated Verified No Known Drug Allergies 09/08/14 No Vital Signs Vital Signs Date Time Temp Pulse Resp B/P (MAP) Pulse Ox O2 Delivery O2 Flow Rate FiO2 08/25/18 10:40 97.6 84 20 137/85 (102) 96 Room Air 97.6 Lab Results Laboratory Tests Test 08/25/18 00:10 08/25/18 06:30 08/25/18 08:25 White Blood Count 6.6 x10^3/uL (4.0-11.0) Red Blood Count 5.12 x10^6/uL (4.30-5.70) Hemoglobin 14.7 g/dL (13.0-17.5) Hematocrit 43.4 % (39.0-53.0) Mean Corpuscular Volume 85 fL (79-100) Mean Corpuscular Hemoglobin 29 pg (25-35) Mean Corpuscular Hemoglobin Concent 34 g/dL (31-37) Red Cell Distribution Width 13.1 % (11.5-14.5) Platelet Count 220 x10^3/uL (140-400) Neutrophils (%) (Auto) 58 % (31-73) Lymphocytes (%) (Auto) 27 % (24-48) Monocytes (%) (Auto) 12 % (0-9) Eosinophils (%) (Auto) 2 % (0-3) Basophils (%) (Auto) 1 % (0-3) Neutrophils # (Auto) 3.8 x10^3uL (1.8-7.7) Lymphocytes # (Auto) 1.8 x10^3/uL (1.0-4.8) Monocytes # (Auto) 0.8 x10^3/uL (0.0-1.1) Eosinophils # (Auto) 0.1 x10^3/uL (0.0-0.7) Basophils # (Auto) 0.0 x10^3/uL (0.0-0.2) Prothrombin Time 13.9 SEC (11.7-14.0) Prothromb Time International Ratio 1.1 (0.8-1.1) D-Dimer (Yohana) 0.69 ug/mlFEU (0.00-0.50) Sodium Level 143 mmol/L (136-145) Potassium Level 3.8 mmol/L (3.5-5.1) Chloride Level 106 mmol/L (98-107) Carbon Dioxide Level 24 mmol/L (21-32) Anion Gap 13 (6-14) Blood Urea Nitrogen 14 mg/dL (8-26) Creatinine 1.4 mg/dL (0.7-1.3) Estimated GFR (Cockcroft-Gault) 65.2 BUN/Creatinine Ratio 10 (6-20) Glucose Level 123 mg/dL (70-99) Calcium Level 9.7 mg/dL (8.5-10.1) Total Bilirubin 1.1 mg/dL (0.2-1.0) Aspartate Amino Transf (AST/SGOT) 38 U/L (15-37) Alanine Aminotransferase (ALT/SGPT) 65 U/L (16-63) Alkaline Phosphatase 157 U/L (46-116) Troponin I Quantitative < 0.017 ng/mL (0.000-0.055) < 0.017 ng/mL (0.000-0.055) < 0.017 ng/mL (0.000-0.055) FF-Yfn-L-Type Natriuretic Peptide 8 pg/mL (0-124) Total Protein 8.6 g/dL (6.4-8.2) Albumin 4.4 g/dL (3.4-5.0) Albumin/Globulin Ratio 1.0 (1.0-1.7) Laboratory Tests Test 08/25/18 00:10 08/25/18 06:30 08/25/18 08:25 White Blood Count 6.6 x10^3/uL (4.0-11.0) Red Blood Count 5.12 x10^6/uL (4.30-5.70) Hemoglobin 14.7 g/dL (13.0-17.5) Hematocrit 43.4 % (39.0-53.0) Mean Corpuscular Volume 85 fL (79-100) Mean Corpuscular Hemoglobin 29 pg (25-35) Mean Corpuscular Hemoglobin Concent 34 g/dL (31-37) Red Cell Distribution Width 13.1 % (11.5-14.5) Platelet Count 220 x10^3/uL (140-400) Neutrophils (%) (Auto) 58 % (31-73) Lymphocytes (%) (Auto) 27 % (24-48) Monocytes (%) (Auto) 12 % (0-9) Eosinophils (%) (Auto) 2 % (0-3) Basophils (%) (Auto) 1 % (0-3) Neutrophils # (Auto) 3.8 x10^3uL (1.8-7.7) Lymphocytes # (Auto) 1.8 x10^3/uL (1.0-4.8) Monocytes # (Auto) 0.8 x10^3/uL (0.0-1.1) Eosinophils # (Auto) 0.1 x10^3/uL (0.0-0.7) Basophils # (Auto) 0.0 x10^3/uL (0.0-0.2) Prothrombin Time 13.9 SEC (11.7-14.0) Prothromb Time International Ratio 1.1 (0.8-1.1) D-Dimer (Yohana) 0.69 ug/mlFEU (0.00-0.50) Sodium Level 143 mmol/L (136-145) Potassium Level 3.8 mmol/L (3.5-5.1) Chloride Level 106 mmol/L (98-107) Carbon Dioxide Level 24 mmol/L (21-32) Anion Gap 13 (6-14) Blood Urea Nitrogen 14 mg/dL (8-26) Creatinine 1.4 mg/dL (0.7-1.3) Estimated GFR (Cockcroft-Gault) 65.2 BUN/Creatinine Ratio 10 (6-20) Glucose Level 123 mg/dL (70-99) Calcium Level 9.7 mg/dL (8.5-10.1) Total Bilirubin 1.1 mg/dL (0.2-1.0) Aspartate Amino Transf (AST/SGOT) 38 U/L (15-37) Alanine Aminotransferase (ALT/SGPT) 65 U/L (16-63) Alkaline Phosphatase 157 U/L (46-116) Troponin I Quantitative < 0.017 ng/mL (0.000-0.055) < 0.017 ng/mL (0.000-0.055) < 0.017 ng/mL (0.000-0.055) MV-Gjf-N-Type Natriuretic Peptide 8 pg/mL (0-124) Total Protein 8.6 g/dL (6.4-8.2) Albumin 4.4 g/dL (3.4-5.0) Albumin/Globulin Ratio 1.0 (1.0-1.7) Brief Hospital Course Mr. Sen is a 47 old [sex] who presented with [ ] 47-year-old -[place] male, history of 2 stents done in March, no PCP but claims compliance to OAC including Brilinta etc. comes in because of chest pain. HE describes as left sided, reproducible on palp, CE and EKG reasuring. FOr echo today, If ok, home today to cont brilinta and other meds, CP no identifiable precip or alleviating, no diaphoresis, soa or presyncopal sxs. HE seems to have good exercise tolerance, non smoker, non drinker but admits to occasional marijuana COURSE: if echo today ok, home today with no change in home meds Discharge Information Condition at Discharge: Improved, Stable Disposition/Orders: D/C to Home Scheduled Allopurinol (Allopurinol) 300 Mg Tablet, 1 TAB PO DAILY, #30 Ref 5 (Reported) Entered as Reported by: Denia Kline on 03/23/182102 Last Action: Continued on 08/25/18848 by JOY FLOWERS Amlodipine Besylate (Norvasc) 10 Mg Tablet, 10 MG PO DAILY, (Reported) Entered as Reported by: Denia Kline on 03/23/182108 Last Action: Continued on 08/25/18848 by JOY FLOWERS Aspirin (Aspirin Ec) 81 Mg Tablet., 81 MG PO DAILYWBKFT for cad MDD 1, #60 Prescribed by: JOY FLOWERS on 03/25/18 0959 Last Action: Continued on 08/25/18848 by JOY FLOWERS Atorvastatin Calcium (Atorvastatin Calcium) 40 Mg Tablet, 40 MG PO HS for FOR CHOLESTEROL, #30 Ref 0 (Reported) Entered as Reported by: CARLOS PATE RN on 08/25/18 0332 Last Action: Continued on 08/25/18848 by JOY FLOWERS Carvedilol (Carvedilol ) 6.25 Mg Tablet, 6.25 MG PO BIDWMEALS for CAD MDD 1, #60 Prescribed by: JOY FLOWERS on 03/25/18958 Last Action: Continued on 08/25/18848 by JOY FLOWERS Colchicine (Colchicine) 0.6 Mg Capsule, 0.6 MG PO DAILY, (Reported) Entered as Reported by: Denia Kline on 03/23/182107 Last Action: HELD on 08/25/18848 by JOY FLOWERS Omeprazole (Omeprazole) 20 Mg Capsule.dr, 1 CAP PO DAILY, #30 Ref 5 (Reported) Entered as Reported by: Denia Kline on 03/23/182109 Last Action: Converted on 08/25/18848 by JOY FLOWERS Prednisone (Prednisone) 50 Mg Tablet, 1 TAB PO DAILY, #4 Ref 0 Start 08/07/18 Prescribed by: USAMA GONZALEZ APRN on 08/06/18 1345 Last Action: HELD on 08/25/18848 by JOY FLOWERS Ticagrelor (Brilinta) 90 Mg Tablet, 90 MG PO BID for cad MDD 1, #60 Prescribed by: JOY FLOWERS on 03/25/18958 Last Action: Continued on 08/25/18848 by JOY FLOWERS Scheduled PRN Acetaminophen With Codeine (Tylenol With Codeine #3 Tablet) 1 Each Tablet, 1 TAB PO PRN Q6HRS PRN for PAIN, #15 Prescribed by: BRAN JORDAN MD on 05/04/18 0844 Last Action: Continued on 08/25/18848 by JOY FLOWERS Hydrocodone/Apap 5-325 (Gillett 5-325 Tablet) 1 Each Tablet, 1 TAB PO PRN Q6HRS PRN for PAIN, #20 Ref 0 No driving or drinking alcohol while taking this medication Prescribed by: JOY FLOWERS on 08/25/18 1135 Nitroglycerin (Nitrostat) 0.4 Mg Tab.subl, 0.4 MG SL PRN Q5MIN PRN for CHEST PAIN MDD 1, #60 Prescribed by: JOY FLOWERS on 03/25/18958 Last Action: Continued on 08/25/18 0849 by JOY FLOWERS Discontinued Medications Lisinopril (Lisinopril) 40 Mg Tablet, 1 TAB PO DAILY, #30 Ref 5 (Reported) Entered as Reported by: Denia Kline on 03/23/182108 Last Action: Discontinued on 08/25/18331 by ROMIE JEAN BAPTISTE CHERRIE Y MD Aug 25, 2018 11:41
--- NOTE | 2018-08-25 13:10 | NUR ---
Discharge Note: [facility] Discharge instructions and discharge home medications reviewed with Patient and a copy given. All questions have been answered and understanding verbalized. The following instructions and handouts were given: Chest pain, hypertension Patient discharged to home or self care with self via wheelchair
[2018-08-25] MEDS ORDERED: ATORVASTATIN CALCIUM 40 MG TABLET. PO SCH (21:00)
== END 2018-08-25 13:00 | disposition home or self-care (01) ==
LOC: ER 08-25 00:09 → INTOOBSV 08-25 01:20 → 2 NORTH 08-25 01:20
PROVIDERS: ADMIT Internal Medicine; ATTEND Internal Medicine
DX: R07.89 Other chest pain (principal); I10 Essential (primary) hypertension; M10.9 Gout, unspecified; K21.9 Gastro-esophageal reflux disease without esophagitis; M19.90 Unspecified osteoarthritis, unspecified site; Z96.652 Presence of left artificial knee joint; Z95.5 Presence of coronary angioplasty implant and graft; E78.5 Hyperlipidemia, unspecified; E66.01 Morbid (severe) obesity due to excess calories; I25.10 Atherosclerotic heart disease of native coronary artery without angina pectoris; K80.20 Calculus of gallbladder without cholecystitis without obstruction; F12.90 Cannabis use, unspecified, uncomplicated; Z79.899 Other long term (current) drug therapy; Z79.02 Long term (current) use of antithrombotics/antiplatelets
CPT/HCPCS: 36415; 71045; 71275; 80053; 83880; 84484; 85025; 85379; 85610; 93005; 93971; 96374; 96375; 99284; G0378; G0379; J2270; J3010; Q9967; 99285-25

== ENCOUNTER 2019-05-17 11:12 | Emergency (ER) | payer OTHER ==
[~2019-05-17] VITALS: Ht 193 cm; Wt 144.0 kg
[~2019-05-17 11:12] MED LIST changes: +ATOR40TA59 PO; -NITR0.4T SL; +NITR0.4T24 SL; -OMEP20CA10 PO; +OMEP20CA16 PO
[2019-05-17] MEDS ORDERED: THIAMINE INJ 100 MG in IV DEXTROSE 5% 50 ML IV ONE (11:45)
--- NOTE | 2019-05-17 11:51 | PHYS DOC ---
Past Medical History Past Medical History: Hypertension Additional Past Medical Histor: GOUT Past Surgical History: Other Additional Past Surgical Histo: 2 HEART STENTS Smoking Status: Never Smoker Alcohol Use: Occasionally Drug Use: None Adult General Chief Complaint Chief Complaint: MULTIPLE COMPLAINTS [facility] HPI Patient is a 48 year old male with history of hypertension, coronary artery disease with stent placement, gout who presented complaining of numbness of bottom of feet. Patient complaining of bilateral heels numbness that started the night before yesterday as a constant problem with feeling of pain in bottom of his feet without weakness, fever and chills, injury, chest pain, shortness of breath, using new shoes or change of work activity, history of the same problem, drinking alcohol or using drugs. Patient states his pain is 8/10 and denies using any pain medication. Patient also complaining of change of color of right great toe since yesterday without having direct injury. Review of Systems Review of Systems Constitutional: Denies fever or chills [] Eyes: Denies change in visual acuity, redness, or eye pain [] HENT: Denies nasal congestion or sore throat [] Respiratory: Denies cough or shortness of breath [] Cardiovascular: No additional information not addressed in HPI [] GI: Denies abdominal pain, nausea, vomiting, bloody stools or diarrhea [] : Denies dysuria or hematuria [] Musculoskeletal: Denies back pain or joint pain [] Integument: Denies rash or skin lesions [] Neurologic: Denies headache, focal weakness, reports sensory changes [] Endocrine: Denies polyuria or polydipsia [] All other systems were reviewed and found to be within normal limits, except as documented in this note. Current Medications Current Medications Current Medications Medications (Trade) Dose Ordered Sig/Joshua Start Time Stop Time Status Last Admin Dose Admin Thiamine HCl 100 mg/Dextrose 51 ml @ 102 mls/hr 1X ONCE 05/17/19 11:45 05/17/19 12:14 DC Allergies Allergies Allergies Coded Allergies Type Severity Reaction Last Updated Verified No Known Drug Allergies 09/08/14 No Physical Exam Physical Exam Constitutional: Well developed, well nourished, mild distress, non-toxic appearance. [] HENT: Normocephalic, atraumatic. Eyes: PERRLA, EOMI, conjunctiva normal, no discharge. [] Neck: Normal range of motion, no tenderness, supple, no stridor. [] Cardiovascular:Heart rate regular rhythm, no murmur [] Lungs & Thorax: Bilateral breath sounds clear to auscultation [] Skin: Warm, dry, no erythema, no rash. [] Back: No tenderness, no CVA tenderness. [] Extremities: No tenderness, no cyanosis, no clubbing, ROM intact, no edema, 3 mm subungual hematoma of right great toe without deformity or sign of injury. [] Neurologic: Alert and oriented X 3, no focal deficits noted. [] Psychologic: Affect normal, judgement normal, mood normal. [] Current Patient Data Vital Signs Vital Signs Date Time Temp Pulse Resp B/P (MAP) Pulse Ox O2 Delivery O2 Flow Rate FiO2 05/17/19 11:19 97.5 89 18 174/94 (120) 99 Room Air 97.5 Lab Values Laboratory Tests Test 05/17/19 11:26 05/17/19 12:09 Prothrombin Time 13.4 SEC (11.7-14.0) Prothrombin Time INR 1.1 (0.8-1.1) Sodium Level 142 mmol/L (136-145) Potassium Level 4.0 mmol/L (3.5-5.1) Chloride Level 104 mmol/L (98-107) Carbon Dioxide Level 27 mmol/L (21-32) Anion Gap 11 (6-14) Blood Urea Nitrogen 14 mg/dL (8-26) Creatinine 1.2 mg/dL (0.7-1.3) Estimated GFR (Cockcroft-Gault) 77.5 BUN/Creatinine Ratio 12 (6-20) Glucose Level 98 mg/dL (70-99) Calcium Level 8.9 mg/dL (8.5-10.1) Magnesium Level 2.3 mg/dL (1.8-2.4) Total Bilirubin 1.8 mg/dL (0.2-1.0) H Aspartate Amino Transferase (AST) 33 U/L (15-37) Alanine Aminotransferase (ALT) 59 U/L (16-63) Alkaline Phosphatase 143 U/L (46-116) H Creatine Kinase 287 U/L (39-308) Troponin I Quantitative < 0.017 ng/mL (0.000-0.055) NP-Buq-V-Type Natriuretic Peptide 26 pg/mL (0-124) Total Protein 7.9 g/dL (6.4-8.2) Albumin 4.7 g/dL (3.4-5.0) Albumin/Globulin Ratio 1.5 (1.0-1.7) White Blood Count 3.7 x10^3/uL (4.0-11.0) L Red Blood Count 5.13 x10^6/uL (4.30-5.70) Hemoglobin 14.6 g/dL (13.0-17.5) Hematocrit 44.2 % (39.0-53.0) Mean Corpuscular Volume 86 fL (79-100) Mean Corpuscular Hemoglobin 29 pg (25-35) Mean Corpuscular Hemoglobin Concent 33 g/dL (31-37) Red Cell Distribution Width 13.6 % (11.5-14.5) Platelet Count 165 x10^3/uL (140-400) Neutrophils (%) (Auto) 45 % (31-73) Lymphocytes (%) (Auto) 40 % (24-48) Monocytes (%) (Auto) 11 % (0-9) H Eosinophils (%) (Auto) 3 % (0-3) Basophils (%) (Auto) 1 % (0-3) Neutrophils # (Auto) 1.7 x10^3/uL (1.8-7.7) L Lymphocytes # (Auto) 1.5 x10^3/uL (1.0-4.8) Monocytes # (Auto) 0.4 x10^3/uL (0.0-1.1) Eosinophils # (Auto) 0.1 x10^3/uL (0.0-0.7) Basophils # (Auto) 0.0 x10^3/uL (0.0-0.2) Laboratory Tests 05/17/19 12:09 Laboratory Tests 05/17/19 11:26 EKG EKG EKG interpreted by me. EKG at 1128 showed normal sinus rhythm at rate of 84, normal NH and QT intervals, no acute ST and T wave elevation. Radiology/Procedures Radiology/Procedures [facility] [address] [place] [address] IMAGING REPORT Signed PATIENT: PIPPA BRIDGES ACCOUNT: [id number] : 1970 LOCATION: ER AGE: 48 SEX: M EXAM STATUS: REG ER ORD. PHYSICIAN: DINESH MUNOZ MD REASON: paresthesia PROCEDURE: CT HEAD WO CONTRAST Examination: CT HEAD WO CONTRAST History: Paresthesia Comparison/Correlation: None Findings: Axial images of the head were obtained without contrast. Ventricles are normal size. Slight atrophy. No intracranial hemorrhage, midline shift, or mass effect. No depressed fracture. Bony structures are unremarkable. Impression: No suspicious process. PQRS Compliance Statement: One or more of the following individualized dose reduction techniques were utilized for this examination: 1. Automated exposure control 2. Adjustment of the mA and/or kV according to patient size 3. Use of iterative reconstruction technique Electronically signed by: Luis Holland MD (05/17/2019 12:06 PM) [id number] DICTATED and SIGNED BY: LUIS HOLLAND MD DATE: 05/17/19 1206 Course & Med Decision Making Course & Med Decision Making Pertinent Labs and Imaging studies reviewed. (See chart for details) Evaluation of patient inertial 48-year-old male patient with complaining of bilateral feet numbness for more than 2 days. Patient had unremarkable physical exam without paresthesia. Labs was unremarkable except for chronic elevation of liver function tests and patient states he had this problem related to taking medication and denies using alcohol and states he did not have drink alcohol for the last 2 or 3 weeks. 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 Patient was advised to follow-up with his primary care physician and prescription for thiamine was given. I've spoken with the patient and/or caregivers. I've explained the patient's condition, diagnosis and treatment plan based on information available to me at this time. I've answered the patient's and/or caregivers questions and addressed any concerns. The patient and/or caregivers have a good understanding the patient's diagnosis, condition and treatment plan as can be expected at this point. Vital signs have been stabilized. The patient's condition is stable for discharge from the emergency department. The patient will pursue further outpatient evaluation with her primary care provider or other designated consulting physician as outlined in the discharge instructions. Patient and/or caregivers are agreeable to this plan of care and follow-up instructions have been explained in detail. The patient and/or caregivers have received these instructions in written format and expressed understanding of these discharge instructions. The patient and her caregivers are aware that if any significant change in condition or worsening of symptoms should prompt him to immediately return to this of the closest emergency department. If an emergent department is not readily available I would encourage him to call 911. Luz Elena Disclaimer Dragon Disclaimer This electronic medical record was generated, in whole or in part, using a voice recognition dictation system. Departure Departure Impression: Primary Impression: Paresthesia Additional Impression: Abnormal liver function Disposition: HOME, SELF-CARE (At 1257) Condition: IMPROVED Referrals: NO PCP (PCP) Patient Instructions: Paresthesia Additional Instructions: Follow-up with your primary care physician in 3-5 days for evaluation of elevated liver function tests Return to ER if not getting better Thank you for visiting [facility]. We appreciate you trusting us with your care. If any additional problems come up don't hesitate to return to visit us. Please follow up with your primary care provider so they can plan additional care if needed and know about the problem that you had. If symptoms worsen come back to the Emergency Department. Any concerning symptoms that start such as chest pain, shortness of air, weakness or numbness on one side of the body, running high fevers or any other concerning symptoms return to the ER. Scripts Thiamine Hcl (VITAMIN B-1) 100 Mg Tablet 1 TAB PO DAILY for 30 Days, #30 TAB 0 Refills Prov: DINESH MUNOZ MD 05/17/19 Problem Qualifiers DINESH MUNOZ MD May 17, 2019 11:51
--- NOTE | 2019-05-17 12:09 | RAD ---
Examination: CT HEAD WO CONTRAST History: Paresthesia Comparison/Correlation: None Findings: Axial images of the head were obtained without contrast. Ventricles are normal size. Slight atrophy. No intracranial hemorrhage, midline shift, or mass effect. No depressed fracture. Bony structures are unremarkable. Impression: No suspicious process. PQRS Compliance Statement: One or more of the following individualized dose reduction techniques were utilized for this examination: 1. Automated exposure control 2. Adjustment of the mA and/or kV according to patient size 3. Use of iterative reconstruction technique Electronically signed by: Luis Holguin MD (05/17/2019 12:06 PM) [id number]
[2019-05-17 12:16] LABS: PROTHROMBIN TIME PATIENT 13.4 SEC (11.7-14.0)
[2019-05-17 12:17] LABS: BASO % 1 % (0-3); EOS # 0.1 x10^3/uL (0.0-0.7); EOS % 3 % (0-3); HEMATOCRIT 44.2 % (39.0-53.0); HEMOGLOBIN 14.6 g/dL (13.0-17.5); LYMPH # 1.5 x10^3/uL (1.0-4.8); LYMPH % 40 % (24-48); MEAN CORPUSCULAR HEMOGLOBIN 29 pg (25-35); MEAN CORPUSCULAR HGB CONC 33 g/dL (31-37); MEAN CORPUSCULAR VOLUME 86 fL (79-100); MONO # 0.4 x10^3/uL (0.0-1.1); MONO % 11 % (0-9); NEUT # 1.7 x10^3/uL (1.8-7.7); NEUT % 45 % (31-73); PLATELET COUNT 165 x10^3/uL (140-400); RED BLOOD COUNT 5.13 x10^6/uL (4.30-5.70); RED CELL DISTRIBUTION WIDTH 13.6 % (11.5-14.5); WHITE BLOOD COUNT 3.7 x10^3/uL (4.0-11.0)
[2019-05-17 12:21] LABS: CALCIUM 8.9 mg/dL (8.5-10.1); CREATININE 1.2 mg/dL (0.7-1.3); GFR 77.5
[2019-05-17 12:28] LABS: ALBUMIN 4.7 g/dL (3.4-5.0); ALBUMIN/GLOBULIN RATIO 1.5 (1.0-1.7); MAGNESIUM 2.3 mg/dL (1.8-2.4); TOTAL BILIRUBIN 1.8 mg/dL (0.2-1.0); TOTAL PROTEIN 7.9 g/dL (6.4-8.2)
[2019-05-17] MEDS ORDERED: THIA100T57 PO (12:58)
[2019-05-17 13:28] VITALS: BP 157/96
--- NOTE | 2019-05-17 14:10 | EKG ---
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
== END 2019-05-17 13:30 | disposition home or self-care (01) ==
LOC: ER 11:12
DX: R20.2 Paresthesia of skin (principal); R94.5 Abnormal results of liver function studies; I11.9 Hypertensive heart disease without heart failure; Z98.890 Other specified postprocedural states
CPT/HCPCS: 36415; 70450; 80053; 82550; 83735; 83880; 84484; 85025; 85610; 93005; 96365; 99285; J3411; J7060

== ENCOUNTER 2019-10-28 05:08 | Observation (INO) | payer OTHER ==
[~2019-10-28] VITALS: Ht 193 cm; Wt 148.6 kg
[~2019-10-28 05:08] MED LIST changes: -ASPI-612 PO; +ASPI-886 PO; +THIA100T57 PO
--- NOTE | 2019-10-28 05:20 | PHYS DOC ---
Past Medical History Past Medical History: Hypertension Additional Past Medical Histor: GOUT Past Surgical History: Other Additional Past Surgical Histo: 2 HEART STENTS Smoking Status: Never Smoker Alcohol Use: Occasionally Drug Use: None General Adult EDM: Chief Complaint: CHEST PAIN-CARDIAC NATURE HPI: HPI: Patient is a 48 year old male with a past medical history of coronary artery disease status post stents 1 year ago hypertension hyperlipidemia presents with a chief complaint of chest pain. Patient states chest pain started around 1700 hrs. yesterday. Patient states pain is in his left chest described it as sharp. With initial onset of pain patient rated 8 out of 10. Patient currently rates pain a 6 out of 10. Patient states pain is been constant since onset and fluctuates in intensity. Patient pain is worse with exertion and with laying down flat. Patient states he has a some associated shortness of breath but denies any nausea. EKG performed shows a normal sinus rhythm with no ST elevation no ST depression no acute LA. Review of Systems: Review of Systems: Constitutional: Denies fever or chills. [] Eyes: Denies change in visual acuity. [] HENT: Denies nasal congestion or sore throat. [] Respiratory: Denies cough or shortness of breath. [] Cardiovascular: Denies chest pain or edema. [] GI: Denies abdominal pain, nausea, vomiting, bloody stools or diarrhea. [] : Denies dysuria. [] Musculoskeletal: Denies back pain or joint pain. [] Integument: Denies rash. [] Neurologic: Denies headache, focal weakness or sensory changes. [] Endocrine: Denies polyuria or polydipsia. [] Lymphatic: Denies swollen glands. [] Psychiatric: Denies depression or anxiety. [] Heart Score: HEART Score for Chest Pain: HEART Score for Chest Pain Response (Comments) Value History Moderately Suspicious 1 ECG Normal 0 Age >45 - < 65 1 Risk Factors >3 Risk Factors or Hx CAD 2 Troponin < Normal Limit 0 Total 4 Risk Factors: Risk Factors: DM, Current or recent (<one month) smoker, HTN, HLP, family hi story of CAD, obesity. Risk Scores: Score 0 - 3: 2.5% MACE over next 6 weeks - Discharge Home Score 4 - 6: 20.3% MACE over next 6 weeks - Admit for Clinical Observation Score 7 - 10: 72.7% MACE over next 6 weeks - Early Invasive Strategies Current Medications: Current Medications Medications (Trade) Dose Ordered Sig/Joshua Start Time Stop Time Status Last Admin Dose Admin Aspirin (Aspirin Chewable) 324 mg 1X ONCE 10/28/19 05:15 10/28/19 05:16 UNV Allergies: Allergies: Allergies Coded Allergies Type Severity Reaction Last Updated Verified No Known Drug Allergies 09/08/14 No Physical Exam: PE: Constitutional: Well developed, well nourished, no acute distress, non-toxic appearance. [] HENT: Normocephalic, atraumatic, bilateral external ears normal, oropharynx moist, no oral exudates, nose normal. [] Eyes: PERRLA, EOMI, conjunctiva normal, no discharge. [] Neck: Normal range of motion, no tenderness, supple, no stridor. [] Cardiovascular:Heart rate regular rhythm, no murmur [] Lungs & Thorax: Bilateral breath sounds clear to auscultation [] Abdomen: Bowel sounds normal, soft, no tenderness, no masses, no pulsatile masses. [] Skin: Warm, dry, no erythema, no rash. [] Back: No tenderness, no CVA tenderness. [] Extremities: No tenderness, no cyanosis, no clubbing, ROM intact, no edema. [] Neurologic: Alert and oriented X 3, normal motor function, normal sensory function, no focal deficits noted. [] Psychologic: Affect normal, judgement normal, mood normal. [] EKG: EKG: EKG taken at 510 hours normal sinus rhythm no ST elevation no ST depression hea rt rate 90 [] Radiology/Procedures: Radiology/Procedures: [] Course & Med Decision Making: Course & Med Decision Making Pertinent Labs and Imaging studies reviewed. (See chart for details) []After initial evaluation workup to include, cbc, cmp, ekg, trop, chest xray. EKG within normal limits- nsr. Treatment with ASA and nitro. 0545 re-evaluation Pain resolved Patient received 1 SL nitro. Luz Elena Disclaimer: Luz Elena Disclaimer: This electronic medical record was generated, in whole or in part, using a voice recognition dictation system. Departure Departure Impression: Primary Impression: Chest pain Disposition: ADMITTED INPATIENT Admitting Physician: PATTI Condition: STABLE Referrals: NO PCP (PCP) Justicifation of Admission Dx: Justifications for Admission: Justification of Admission Dx: Yes Comments: Chest Pain Hypokalemia ALLEN ALMARAZ I DO Oct 28, 2019 05:20
[2019-10-28] MEDS ORDERED: NITROGLYCERIN SUBLINGUAL 0.4 MG BOTTLE OF 25. SL PRN (05:30)
[2019-10-28] MEDS ORDERED: ASPIRIN CHEWABLE 81 MG TABLET. PO ONE (05:30)
[2019-10-28 05:42] LABS: BASO % 1 % (0-3); EOS % 1 % (0-3); HEMATOCRIT 39.8 % (39.0-53.0); HEMOGLOBIN 13.6 g/dL (13.0-17.5); LYMPH # 1.4 x10^3/uL (1.0-4.8); LYMPH % 35 % (24-48); MEAN CORPUSCULAR HEMOGLOBIN 29 pg (25-35); MEAN CORPUSCULAR HGB CONC 34 g/dL (31-37); MEAN CORPUSCULAR VOLUME 86 fL (79-100); MONO # 0.3 x10^3/uL (0.0-1.1); MONO % 8 % (0-9); NEUT # 2.2 x10^3/uL (1.8-7.7); NEUT % 56 % (31-73); PLATELET COUNT 160 x10^3/uL (140-400); RED BLOOD COUNT 4.65 x10^6/uL (4.30-5.70); RED CELL DISTRIBUTION WIDTH 13.5 % (11.5-14.5)
[2019-10-28 05:44] LABS: ALBUMIN 3.8 g/dL (3.4-5.0); CALCIUM 8.5 mg/dL (8.5-10.1); CREATININE 1.3 mg/dL (0.7-1.3); GFR 70.7; TOTAL BILIRUBIN 0.8 mg/dL (0.2-1.0); TOTAL PROTEIN 7.5 g/dL (6.4-8.2)
[2019-10-28] MEDS ORDERED: MORPHINE SULFATE 2 MG/ML VIAL. IV PRN (06:00)
[2019-10-28] MEDS ORDERED: ONDANSETRON PF 4 MG/2 ML VIAL. IV PRN (06:00)
[2019-10-28 07:07] VITALS: BP 156/98
--- NOTE | 2019-10-28 07:17 | RAD ---
CHEST AP ONLY Clinical Indication: Reason: chest pain / Spl. Instructions: / History: Comparison: AP chest August 25, 2018. Findings: The cardiomediastinal silhouette is normal. Lungs are clear. There is no pneumothorax. No pleural effusion is appreciated. No acute bone abnormality. IMPRESSION: No acute cardiopulmonary process. Electronically signed by: Jerald Hills MD (10/28/2019 7:14 AM) [facility]
--- NOTE | 2019-10-28 09:03 | PDOC2 ---
CARDIOLOGY CONSULT NOTE DATE OF SERVICE: DATE: 10/28/19 TIME: 08:43 CHIEF COMPLAINT: Chest pain HPI: 48 y.o male with known prior CAD presents with pain after eating. he feels like this is his heart burn symptoms. he reports pain worsened after lying down. He has had not had any angina, dyspnea or other CV issues. PMHX: CAD HTN DLP Prior substance abuse GERD SOCHX: +Marijuana use FAMHX: NC CURRENT MEDS: Current Medications Medications (Trade) Dose Ordered Sig/Joshua Route PRN Reason Start Time Stop Time Status Last Admin Dose Admin Aspirin (Aspirin Chewable) 324 mg 1X ONCE PO 10/28/19 05:30 10/28/19 05:35 DC 10/28/19 05:37 Nitroglycerin (Nitrostat) 0.4 mg PRN Q5MIN PRN SL CHEST PAIN 10/28/19 05:30 10/28/19 05:38 ALLERGIES: Allergies Coded Allergies Type Severity Reaction Last Updated Verified No Known Drug Allergies 09/08/14 No ROS: Negative unless noted above in HPI PHYSICAL EXAM: Vital Signs/I&O: Vital Signs Date Time Temp Pulse Resp B/P (MAP) Pulse Ox O2 Delivery O2 Flow Rate FiO2 10/28/19 07:07 98.0 88 21 156/98 (117) 100 Room Air 98.0 Physical Exam: GEN.: No apparent distress. Alert and oriented. HEENT: Head is normocephalic, atraumatic NECK: Supple. LUNGS: Clear to auscultation. HEART: RRR, S1, S2 present. Peripheral pulses intact ABDOMEN: Soft, nontender. Positive bowel sounds. EXTREMITIES: Without any cyanosis. NEUROLOGIC: Normal speech, normal tone PSYCHIATRIC: Normal affect, normal mood. SKIN: No ulcerations DIAGNOSTIC TESTING: EKG negative Trop negative Cath in 2019 with PCI to the LAD and RCA Lab Laboratory Tests Test 10/28/19 05:17 White Blood Count 4.0 x10^3/uL (4.0-11.0) Red Blood Count 4.65 x10^6/uL (4.30-5.70) Hemoglobin 13.6 g/dL (13.0-17.5) Hematocrit 39.8 % (39.0-53.0) Mean Corpuscular Volume 86 fL (79-100) Mean Corpuscular Hemoglobin 29 pg (25-35) Mean Corpuscular Hemoglobin Concent 34 g/dL (31-37) Red Cell Distribution Width 13.5 % (11.5-14.5) Platelet Count 160 x10^3/uL (140-400) Neutrophils (%) (Auto) 56 % (31-73) Lymphocytes (%) (Auto) 35 % (24-48) Monocytes (%) (Auto) 8 % (0-9) Eosinophils (%) (Auto) 1 % (0-3) Basophils (%) (Auto) 1 % (0-3) Neutrophils # (Auto) 2.2 x10^3/uL (1.8-7.7) Lymphocytes # (Auto) 1.4 x10^3/uL (1.0-4.8) Monocytes # (Auto) 0.3 x10^3/uL (0.0-1.1) Eosinophils # (Auto) 0.0 x10^3/uL (0.0-0.7) Basophils # (Auto) 0.0 x10^3/uL (0.0-0.2) Sodium Level 142 mmol/L (136-145) Potassium Level 3.0 mmol/L (3.5-5.1) L Chloride Level 104 mmol/L (98-107) Carbon Dioxide Level 28 mmol/L (21-32) Anion Gap 10 (6-14) Blood Urea Nitrogen 12 mg/dL (8-26) Creatinine 1.3 mg/dL (0.7-1.3) Estimated GFR (Cockcroft-Gault) 70.7 BUN/Creatinine Ratio 9 (6-20) Glucose Level 157 mg/dL (70-99) H Calcium Level 8.5 mg/dL (8.5-10.1) Total Bilirubin 0.8 mg/dL (0.2-1.0) Aspartate Amino Transf (AST/SGOT) 45 U/L (15-37) H Alkaline Phosphatase 130 U/L (46-116) H Total Protein 7.5 g/dL (6.4-8.2) Albumin 3.8 g/dL (3.4-5.0) Albumin/Globulin Ratio 1.0 (1.0-1.7) Laboratory Tests 10/28/19 05:17 ASSESSMENT: 1. Non-cardiac chest pain 2. HTN 3. CAD 4. DLP 5. Substance abuse. PLAN: 1. Patient presenting with classic signs of GERD. No obvious angina. EKG and Trop negative. 2. Will stop ASA, continue plavix and other home meds. 3. Defer to PCP and GI regarding tx of GERD. VERO FOSTER MD Oct 28, 2019 09:03
[2019-10-28 10:49] VITALS: BP 151/102
--- NOTE | 2019-10-28 10:56 | HP ---
ADMIT DATE: 10/28/2019 CHIEF COMPLAINT: Chest pain. HISTORY OF PRESENT ILLNESS: The patient is a pleasant middle-aged -[place] male, who states he has got 2 previous cardiac stents, now he presents with chest pain again. Rates it at 9/10. He has associated weakness, started at about 5:00 yesterday, it got worse. He increased his home meds, but that did not seem to help. He states it was sharp in nature, got better with sitting still. I discussed the case with the ER physician. We are going to admit the patient and consult Cardiology. PAST MEDICAL HISTORY: Coronary artery disease with 2 cardiac stents, gout, hypertension, overweight, and "blown out knee." ALLERGIES: None. FAMILY HISTORY: Coronary artery disease. SOCIAL HISTORY: He states he is disabled. Does not drink, smoke, or take drugs. MEDICATIONS: Were reviewed, please refer to the MRAD. REVIEW OF SYSTEMS: GENERAL: No history of weight change, weakness or fevers. SKIN: No bruising, hair changes or rashes. EYES: No blurred, double or loss of vision. NOSE AND THROAT: No history of nosebleeds, hoarseness or sore throat. HEART: He complains of chest pain, although it is better. LUNGS: Denies cough, hemoptysis, wheezing or shortness of breath. GASTROINTESTINAL: Denies changes in appetite, nausea, vomiting, diarrhea or constipation. GENITOURINARY: No history of frequency, urgency, hesitancy or nocturia. NEUROLOGIC: Denies history of numbness, tingling, tremor or weakness. PSYCHIATRIC: No history of panic, anxiety or depression. ENDOCRINE: No history of heat or cold intolerance, polyuria or polydipsia. EXTREMITIES: Denies muscle weakness, joint pain, pain on walking or stiffness. PHYSICAL EXAMINATION: VITALS: Within normal limits and are stable. GENERAL: No apparent distress. Alert and oriented. HEENT: Normocephalic atraumatic, external auditory canals are patent. EYES: Extraocular muscles are intact, pupils are equally round and reactive to light and accommodation. MUSCULOSKELETAL: Well developed, well nourished, good range of motion. ENDOCRINE: No thyromegaly was palpated. LYMPHATICS: No cervical chain or axillary nodes were noted. HEMATOPOIETIC: No bruising. NECK: Supple, no JVD, no thyromegaly was noted. LUNGS: Clear to auscultation in all lung kim without rhonchi or wheezing. HEART: RRR, S1, S2 present. Peripheral pulses intact, no obvious murmurs were noted. ABDOMEN: Soft, nontender. Positive bowel sounds no organomegaly, normal bowel sounds. EXTREMITIES: Without any cyanosis, clubbing, or edema. Pedal pulses intact, Homans sign is negative. NEUROLOGIC: Normal speech, normal tone. A & O x3, moves all extremities, no obvious focal deficits. PSYCHIATRIC: Normal affect, normal mood. Stable. SKIN: No ulcerations or rashes, good skin turgor, no jaundice. VASCULAR: Good capillary refill, neurovascular bundle appears to be intact. LABORATORY DATA: Troponin is 0. Hematology normal. Potassium is little low at 3.0. ASSESSMENT AND PLAN: Chest pain with known coronary artery disease and incidental finding of hypokalemia. The patient is being admitted to the cardiac floor. Serial enzymes. Serial EKGs. Consider echocardiogram. Consult Cardiology. Replace his potassium. Home meds. DVT prophylaxis. Full code. PROGNOSIS: Guarded. ANA ABRAHAM DO DR: DAVID/georgina JOB#: [id number] / [id number]
[2019-10-28 11:11] LABS: BARBITURATES NEG (NEG); BENZODIAZEPINES NEG (NEG); CANNABINOIDS POS (NEG); COCAINE NEG (NEG); METHADONE NEG (NEG); OPIATES NEG (NEG); PHENCYCLIDINE NEG (NEG)
[2019-10-28 11:13] LABS: AMPHETAMINE/METHAMPHETAMINE NEG (NEG)
[2019-10-28] MEDS ORDERED: POTA20TA4 PO (11:52)
[2019-10-28] MEDS ORDERED: LISI10TA2 PO (11:52)
[2019-10-28] MEDS ORDERED: LIDO:MAALOX 1:1 20 ML SINGLE DOSE. PO PRN (12:00)
[2019-10-28] MEDS ORDERED: POTASSIUM CHLORIDE 20 MEQ TABLET.ER. PO SCH (12:30)
[2019-10-28] MEDS ORDERED: ASPIRIN ENTERIC COATED 81 MG TABLET.DR. PO SCH (12:30)
[2019-10-28] MEDS ORDERED: ALLOPURINOL 300 MG TABLET. PO SCH (13:00)
[2019-10-28] MEDS ORDERED: COLCHICINE 0.6 MG TABLET PO SCH (13:00)
[2019-10-28] MEDS ORDERED: LISINOPRIL 10 MG TABLET PO SCH (13:00)
[2019-10-28 13:02] VITALS: BP 151/102
[2019-10-28] MEDS ORDERED: OMEP20TA8 PO (13:16)
--- NOTE | 2019-10-28 15:36 | NUR ---
Discharge Note: PIPPA BRIDGES Discharge instructions and discharge home medications reviewed with Patient and a copy given. All questions have been answered and understanding verbalized. The following instructions and handouts were given: heartburn Discontinued lines and drains: IV catheter removed intact. Tele monitor removed. Patient discharged to Home with self care via wheelchair.
[2019-10-28] MEDS ORDERED: PANTOPRAZOLE 40 MG TABLET.DR. PO SCH (16:30)
[2019-10-28] MEDS ORDERED: CARVEDILOL 6.25 MG TABLET. PO SCH (17:00)
[2019-10-28] MEDS ORDERED: TICAGRELOR 90 MG TABLET. PO SCH (21:00)
[2019-10-28] MEDS ORDERED: ATORVASTATIN CALCIUM 40 MG TABLET. PO SCH (21:00)
--- NOTE | 2019-10-30 15:45 | EKG ---
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
== END 2019-10-28 15:38 | disposition home or self-care (01) ==
LOC: ER 05:08 → 2 NORTH 06:28
PROVIDERS: ADMIT Internal Medicine; ATTEND Internal Medicine
DX: R07.89 Other chest pain (principal); I10 Essential (primary) hypertension; E87.6 Hypokalemia; I25.10 Atherosclerotic heart disease of native coronary artery without angina pectoris; K21.0 Gastro-esophageal reflux disease with esophagitis; Z95.5 Presence of coronary angioplasty implant and graft
CPT/HCPCS: 36415; 71045; 80053; 80307; 83880; 84484; 85025; 99284; G0378; 93005; G0379